=== PATIENT | male | born 1955 | race Caucasian/White ===

== ENCOUNTER 2023-06-06 14:48 | Outpatient (AMB) | payer OTHER, SELFPAY ==
[2023-06-06 14:52] VITALS: BP 122/77; PULSE 88; O2SAT 93; BMI 40.7
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
== END 2023-06-06 15:45 | disposition home or self-care (01) ==
PROVIDERS: PCP Hospitalist; Visit Provider Hospitalist
DX: R91.1 Solitary pulmonary nodule (principal); J45.40 Moderate persistent asthma, uncomplicated; J30.9 Allergic rhinitis, unspecified; R60.0 Localized edema
CPT/HCPCS: 99204

== ENCOUNTER → 2023-06-06 14:48 | Outpatient (BNVA) | payer OTHER, SELFPAY | PROVIDERS: PCP Hospitalist; Visit Provider Hospitalist ==

== ENCOUNTER 2023-07-25 14:55 | Outpatient (REF) | payer OTHER, SELFPAY ==
--- NOTE | ~2023-07-25 | XR_ITS ---
EXAMINATION: XR CHEST CLINICAL INFORMATION: Asthma and shortness of breath. COMPARISON: None available. TECHNIQUE: Frontal and lateral views of the chest were obtained. FINDINGS: The heart, great vessels, pulmonary vasculature and mediastinum are normal. The lungs show no focal infiltrate, effusion or pneumothorax. There is no acute osseous abnormality. XR/XR chest 2V IMPRESSION: No active cardiopulmonary disease.
[2023-07-25 09:12] VITALS: PULSE 76; RESP 16; O2SAT 95
--- NOTE | 2023-07-25 15:50 | PFT_ITS ---
Indication: Asthma Spirometry [FEV1 to FVC 79%; FEV1 2.49 L; FVC 3.17 L. no significant response to bronchodilators noted. Maximum voluntary ventilation 58% predicted] Lung Volumes [Total lung capacity 80% predicted; expiratory reserve volume 25% predicted] Diffusion Capacity [Diffusing capacity DLCO 90% predicted] Comparisons [None] Interpretation [No definitive obstructive nor restrictive ventilatory defects identified. No significant response to bronchodilators noted. Significant decrease in the maximum voluntary ventilation secondary to likely deconditioning although can not rule out neuromuscular disease. Lung volumes are low normal with a decrease in the expiratory reserve volume secondary to an elevated BMI. Diffusing capacity is within normal limits. If asthma is in differential a methacholine challenge may be helpful for assessing for hype-reactive airways. Otherwise clinical correlation warranted.] MTDD
== END 2023-07-25 14:56 | disposition home or self-care (01) ==
LOC: HO.RESP 14:55
PROVIDERS: PCP Family Medicine; Visit Provider Hospitalist
DX: J45.40 Moderate persistent asthma, uncomplicated (principal); R91.1 Solitary pulmonary nodule
CPT/HCPCS: 71046; 94010; 94640; 94727; 94729

== ENCOUNTER → 2023-07-25 15:50 | Outpatient (BNV) | payer OTHER, SELFPAY | PROVIDERS: PCP Family Medicine; Visit Provider Hospitalist | DX: J45.40 Moderate persistent asthma, uncomplicated (principal); R91.1 Solitary pulmonary nodule | CPT/HCPCS: 94060; 94727; 94729 ==

== ENCOUNTER 2023-08-11 14:58 | Outpatient (AMB) | payer OTHER, SELFPAY ==
[2023-08-11 15:02] VITALS: PULSE 70; O2SAT 95; BMI 40.7
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
== END 2023-08-11 15:23 | disposition home or self-care (01) ==
PROVIDERS: PCP Hospitalist; Visit Provider Hospitalist
DX: R91.1 Solitary pulmonary nodule (principal); J45.40 Moderate persistent asthma, uncomplicated; J30.9 Allergic rhinitis, unspecified; R60.0 Localized edema
CPT/HCPCS: 99214

== ENCOUNTER → 2023-08-11 14:58 | Outpatient (BNVA) | payer OTHER, SELFPAY | PROVIDERS: PCP Hospitalist; Visit Provider Hospitalist | DX: J45.40 Moderate persistent asthma, uncomplicated (principal); R91.1 Solitary pulmonary nodule ==